=== PATIENT | male | born 1995 | race Caucasian/White ===

== ENCOUNTER 2017-01-12 12:28 | Emergency (ER) | payer OTHER ==
[2017-01-12] MEDS ORDERED: Ondansetron 4 MG Tab.DIS PO SCH (12:55)
[2017-01-12] MEDS ORDERED: Ketorolac 60 MG/2 ML SDV IM ONE (12:55)
[2017-01-12] MEDS ORDERED: Ketorolac 60 MG/2 ML SDV ONE (12:59)
[2017-01-12] MEDS ORDERED: Ondansetron 4 MG Tab.DIS ONE (13:00)
[2017-01-12 13:10] VITALS: BP 127/81
--- NOTE | 2017-01-12 15:31 | EDM.PDOC ---
ED HPI LOWER BACK PAIN/INJURY - General Chief Complaint: Back Pain or Injury Stated Complaint: BACK PAIN Time Seen by Provider: 01/12/17 14:00 Source: Reports: Patient History Limitations: Reports: No limitations - History of Present Illness INITIAL COMMENTS - FREE TEXT/NARRATIVE: This is a 21yo M here for lower back pain with radiation to the pelvic area. Patient states the pain is 7/10 and he has not had this type of pain in the past. Patient denies any injuries or other concerns. Denies fever or chills or dysuria. Timing/Duration: Reports: Hour(s):, Constant Quality: Reports: Ache Severity: moderate Improves with: Reports: None Worsens with: Reports: None Associated Symptoms: Reports: Nausea/vomiting Treatment(s) DESK SERGEANT: Reports: Other medication(s) - Related Data Allergies/ADRs: Allergies Allergy/AdvReac Type Severity Reaction Status Date / Time No Known Allergies Allergy Verified 01/12/17 13:05 Home Meds: Home Meds NK [No Known Home Meds] 01/12/17 [History] Past Medical History Musculoskeletal History: Reports: Back pain, chronic, Fracture Psychiatric History: Reports: Anxiety, Bipolar, Depression Social & Family History - Family History Musculoskeletal: Reports: Other (see below) Other Musculoskeletal Family History: degenerative disc disease ED ROS GENERAL - Review of Systems Review Of Systems: ROS reveals no pertinent complaints other than HPI. ED EXAM,LOWER BACK PAIN/INJURY - Physical Exam Exam: See Below Exam Limited By: No limitations General Appearance: alert, WD/WN, moderate distress Eye Exam: bilateral eye: PERRL Ears: normal external exam Nose: normal inspection Throat/Mouth: Normal inspection, Normal lips Head: atraumatic, normocephalic Neck: normal inspection, supple Respiratory/Chest: no respiratory distress, lungs clear, normal breath sounds Cardiovascular: normal peripheral pulses, regular rate, rhythm GI/Abdominal: normal bowel sounds, soft, tender Back Exam: CVA tenderness (R) Extremities: normal inspection Neurological: alert, normal mood/affect Course - Vital Signs Last Recorded V/S: Last Vital Signs Temp 36.1 C 01/12/17 12:30 Pulse 71 01/12/17 12:30 Resp 16 01/12/17 12:30 BP 127/81 01/12/17 12:30 Pulse Ox 100 01/12/17 12:30 - Orders/Labs/Meds Orders: Active Orders 24 hr Category Date Time Status Chest Abdomen Pelvis wo Cont [CT] Stat Exams 01/12/17 13:10 Taken Ondansetron [Zofran ODT] Med 01/12/17 12:55 Active 8 mg PO ONETIME Medication Orders Ondansetron HCl (Zofran Odt) 8 mg PO ONETIME INO Last Admin: 01/12/17 13:00 Dose: 8 mg Labs: Laboratory Tests 01/12/17 01/12/17 01/12/17 Range/Units 13:09 13:09 13:10 WBC 15.6 H (4.0-11.0) K/uL RBC 5.24 (4.50-6.50) M/uL Hgb 15.6 (13.0-18.0) g/dL Hct 45.3 (40.0-54.0) % MCV 87 (76-96) fL MCH 29.8 (27.0-32.0) pg MCHC 34.4 (31.0-35.0) g/dL RDW 12.8 (11.0-16.0) % Plt Count 357 (150-400) K/uL MPV 9.2 (6.0-10.0) fL Neut % (Auto) 92.4 H (45.0-70.0) % Lymph % (Auto) 4.0 L (20.0-40.0) % Tate % (Auto) 3.4 (3.0-10.0) % Eos % (Auto) 0.0 L (1.0-5.0) % Baso % (Auto) 0.2 (0.0-0.5) % Neut # (Auto) 14.37 H (2.00-7.50) K/uL Lymph # (Auto) 0.62 L (1.50-4.00) K/uL Tate # (Auto) 0.53 (0.20-0.80) K/uL Eos # (Auto) 0.00 L (0.04-0.40) K/uL Baso # (Auto) 0.03 (0.02-0.10) K/uL Sodium 143 (136-145) mmol/L Potassium 4.5 (3.5-5.1) mmol/L Chloride 105 (98-107) mmol/L Carbon Dioxide 26.6 (21.0-32.0) mmol/L Anion Gap 15.9 H (5.0-15.0) mmol/L BUN 19 (8-26) mg/dL Creatinine 1.20 (0.70-1.30) mg/dL Est Cr Clr Drug Dosing TNP Estimated GFR (MDRD) > 60 (>60) MLS/MIN BUN/Creatinine Ratio 15.8 (6-25) Glucose 114 H (74-100) mg/dL Calcium 9.5 (8.5-10.1) mg/dL Urine Color Urine Appearance (CLEAR) Urine pH (5.0-8.0) Ur Specific [place] (1.003-1.030) Urine Protein (NEGATIVE) mg/dL Urine Glucose (UA) (NEGATIVE) mg/dL Urine Ketones (NEGATIVE) mg/dL Urine Occult Blood (NEGATIVE) Urine Nitrite (NEGATIVE) Urine Bilirubin (NEGATIVE) Urine Urobilinogen (0.2-1.0) E.U./dL Ur Leukocyte Esterase (NEGATIVE) Urine RBC /HPF Urine WBC /HPF Ur Squamous Epith Cells /HPF Urine Bacteria /HPF Urine Opiates Screen Negative (NEGATIVE) Ur Oxycodone Screen Negative (NEGATIVE) Urine Methadone Screen Negative (NEGATIVE) U Acetaminophen Screen Positive H (NEGATIVE) Ur Barbiturates Screen Negative (NEGATIVE) Ur Tricyclics Screen Negative (NEGATIVE) Ur Phencyclidine Scrn Negative (NEGATIVE) Ur Amphetamine Screen Negative (NEGATIVE) U Methamphetamines Scrn Negative (NEGATIVE) U Benzodiazepines Scrn Negative (NEGATIVE) U Cocaine Metab Screen Negative (NEGATIVE) U Marijuana (THC) Screen Negative (NEGATIVE) 01/12/17 Range/Units 13:58 WBC (4.0-11.0) K/uL RBC (4.50-6.50) M/uL Hgb (13.0-18.0) g/dL Hct (40.0-54.0) % MCV (76-96) fL MCH (27.0-32.0) pg MCHC (31.0-35.0) g/dL RDW (11.0-16.0) % Plt Count (150-400) K/uL MPV (6.0-10.0) fL Neut % (Auto) (45.0-70.0) % Lymph % (Auto) (20.0-40.0) % Tate % (Auto) (3.0-10.0) % Eos % (Auto) (1.0-5.0) % Baso % (Auto) (0.0-0.5) % Neut # (Auto) (2.00-7.50) K/uL Lymph # (Auto) (1.50-4.00) K/uL Tate # (Auto) (0.20-0.80) K/uL Eos # (Auto) (0.04-0.40) K/uL Baso # (Auto) (0.02-0.10) K/uL Sodium (136-145) mmol/L Potassium (3.5-5.1) mmol/L Chloride (98-107) mmol/L Carbon Dioxide (21.0-32.0) mmol/L Anion Gap (5.0-15.0) mmol/L BUN (8-26) mg/dL Creatinine (0.70-1.30) mg/dL Est Cr Clr Drug Dosing Estimated GFR (MDRD) (>60) MLS/MIN BUN/Creatinine Ratio (6-25) Glucose (74-100) mg/dL Calcium (8.5-10.1) mg/dL Urine Color Brown Urine Appearance Cloudy (CLEAR) Urine pH 8.5 H (5.0-8.0) Ur Specific [place] 1.020 (1.003-1.030) Urine Protein 100 H (NEGATIVE) mg/dL Urine Glucose (UA) Negative (NEGATIVE) mg/dL Urine Ketones 40 H (NEGATIVE) mg/dL Urine Occult Blood Large H (NEGATIVE) Urine Nitrite Negative (NEGATIVE) Urine Bilirubin Small H (NEGATIVE) Urine Urobilinogen 0.2 (0.2-1.0) E.U./dL Ur Leukocyte Esterase Negative (NEGATIVE) Urine RBC 50-75 H /HPF Urine WBC 0-5 H /HPF Ur Squamous Epith Cells Few /HPF Urine Bacteria Few /HPF Urine Opiates Screen (NEGATIVE) Ur Oxycodone Screen (NEGATIVE) Urine Methadone Screen (NEGATIVE) U Acetaminophen Screen (NEGATIVE) Ur Barbiturates Screen (NEGATIVE) Ur Tricyclics Screen (NEGATIVE) Ur Phencyclidine Scrn (NEGATIVE) Ur Amphetamine Screen (NEGATIVE) U Methamphetamines Scrn (NEGATIVE) U Benzodiazepines Scrn (NEGATIVE) U Cocaine Metab Screen (NEGATIVE) U Marijuana (THC) Screen (NEGATIVE) Meds: Medications Generic Name Dose Route Start Last Admin Trade Name Frecesar PRN Reason Stop Dose Admin Ondansetron HCl 8 mg 01/12/17 12:55 01/12/17 13:00 Zofran Odt PO 8 mg ONETIME INO Administration Discontinued Medications Generic Name Dose Route Start Last Admin Trade Name Ashly PRN Reason Stop Dose Admin Ketorolac Tromethamine Confirm 01/12/17 12:59 01/12/17 13:11 Toradol Administered 01/12/17 13:00 Not Given Dose 60 mg .ROUTE .STK-MED ONE Ketorolac Tromethamine 60 mg 01/12/17 12:55 01/12/17 13:04 Toradol IM 01/12/17 12:56 60 mg ONETIME ONE Administration Ondansetron HCl Confirm 01/12/17 13:00 01/12/17 13:11 Zofran Odt Administered 01/12/17 13:01 Not Given Dose 8 mg .ROUTE .STK-MED ONE Departure - Departure Time of Disposition: 16:10 Disposition: Home, Self-Care 01 Condition: good Clinical Impression: Renal calculi Instructions: Acetaminophen; Hydrocodone tablets or capsules, Kidney Stones, Tamsulosin capsules, Dietary Guidelines to Help Prevent Kidney Stones Referrals: PCP,None [Primary Care Provider] - Forms: ED Department Discharge Additional Instructions: Drink plenty of fluids, water is the best. Take Flomax 0.4mg daily. Take Hydrocodone as prescribed. May take Ibuprofen or Motrin between Hydrocodone. Follow up if you develop increased pain, fever, chills, and nausea/vomiting. Strain urine every time you void. If you collect stone bring in for analysing. - Problem List Review Problem List Initiated/Reviewed/Updated: Yes - My Orders Last 24 Hours: My Active Orders 01/12/17 12:55 Ondansetron [Zofran ODT] 8 mg PO ONETIME 01/12/17 13:10 Chest Abdomen Pelvis wo Cont [CT] Stat - Assessment/Plan Last 24 Hours: My Active Orders 01/12/17 12:55 Ondansetron [Zofran ODT] 8 mg PO ONETIME 01/12/17 13:10 Chest Abdomen Pelvis wo Cont [CT] Stat Plan: Started on flomax, pain medications and close monitoring. Patient to strain urine to obtain stones for analysis. F/u if symptoms persist, worsen or change. F/u as directed. Counseled on supportive/conservative management.
--- NOTE | 2017-01-12 15:50 | CT ---
DATE OF SERVICE: 01/12/17 CLINICAL DATA: back pain UNENHANCED CHEST CT: Multislice acquisition through the chest without IV contrast was performed. The lungs are clear and appear normal. No pneumothorax. No pleural effusions. No hilar or mediastinal adenopathy. The heart size is normal. No pericardial effusion. No displaced fractures. IMPRESSION: Negative exam. UNENHANCED ABDOMEN AND PELVIC CT: Multislice acquisition through the abdomen and pelvis without IV or oral contrast was performed. The unenhanced liver appears normal. The gallbladder appears normal. The spleen appears normal. The pancreas appears normal. The right and left adrenals appear normal. There are small nonobstructing renal calculi bilaterally. There is a 2 mm calculi noted on the right in the region of the ureterovesical junction. There is mild hydronephrosis on the right. The kidneys and collecting systems are otherwise unremarkable. The bladder is otherwise unremarkable. The appendix is not visualized. No evidence of appendicitis. No free air. No free fluid. No dilated loops of bowel. No adenopathy. No aortic aneurysm. [id number] [facility]
== END 2017-01-12 14:53 | disposition home or self-care (01) ==
LOC: LB.ED 12:28
DX: N13.2 Hydronephrosis with renal and ureteral calculous obstruction (principal); F41.9 Anxiety disorder, unspecified; F32.9 Major depressive disorder, single episode, unspecified
CPT/HCPCS: 36415; 71250; 74176; 80048; 80307; 81001; 85025; 96372; 99284; A9270; J1885